=== PATIENT | male | born 1995 | race Caucasian/White ===

== ENCOUNTER 2025-03-17 13:26 | Outpatient (CLI) | payer OTHER, SELFPAY | END 2025-03-17 13:27 | disposition home or self-care (01) | LOC: NFLDREF 13:46 | PROVIDERS: PCP Registered Nurse; Visit Provider Registered Nurse | DX: Z00.00 Encounter for general adult medical examination without abnormal findings (principal); Z13.29 Encounter for screening for other suspected endocrine disorder | CPT/HCPCS: 84443 ==